=== PATIENT | male | born 1990 | race Hispanic/Latino ===

== ENCOUNTER 2018-07-28 10:30 | Emergency (ER) | payer OTHER, SELFPAY ==
[2018-07-28 10:30] VITALS: BP 135/65; PULSE 51; RESP 12; TEMP 36.2; O2SAT 99
--- NOTE | 2018-07-28 10:56 | ED_ITS ---
HPI - General Adult General Chief complaint: Blood/Body fluid exposure Stated complaint: EXPOSURE TO BODILY FLUIDS Time Seen by Provider: 07/28/18 10:55 Source: patient Mode of arrival: ambulatory Limitations: no limitations History of Present Illness HPI narrative: Patient is an otherwise healthy 28-year-old male here for evaluation. He is a [employer] man. He was called out to a crew ship in the area for resuscitation of an elderly gentleman who had CPR in progress. With the patient arrived there he did performed chest compressions. He did perform [id number] resuscitation with a barrier device and also performed respiratory support with a bag-valve mask. He stated that during this resuscitation which ventrally was unsuccessful there was respiratory secretions. He did not directly have exposure to the secretions. While there putting the individual in the body back his IV did come out and there was blood in the area. He was not stuck with any needles. Review of Systems Review of Systems All systems reviewed & are unremarkable except as noted in HPI and below PFSH Medical History Healthy adult (Acute) Surgical History No pertinent past surgical history (Acute) Exam Initial Vital Signs Initial Vital Signs: Vital Signs Temperature 97.1 F L 07/28/18 10:30 Pulse Rate 51 L 07/28/18 10:30 Respiratory Rate 12 07/28/18 10:30 Blood Pressure 135/65 07/28/18 10:30 Pulse Oximetry 99 07/28/18 10:30 Const General: cooperative, healthy appearing, comfortable, well developed, well groomed and No acute distress Orientation: alert, awake and oriented x3 HENMT Head: normal to inspection and normocephalic Resp Effort & Inspection: normal respiratory effort Skin Lesions: no lesions Rashes: no rashes Neuro General: alert, awake and oriented x3 Extrem General: normal to inspection Psych Appearance: grossly normal and well kempt Medical Decision Making MDM Narrative Medical decision making narrative: I feel like given the patient's clinical scenario that the chances of a blood borne pathogen infection is extremely unlikely in this situation. I did recommend to the patient that we do not draw any blood today. The patient did have a medical apparatus model maker with him here who stated that it was [employer] ?policy ?that he had blood drawn. I asked this account services representative if he had a copy the policy which he did not have. I asked this individual if he knew what blood that the [employer] requires in this situation and he could not answer this question. I informed him that if he did not have a list of what they would like drawn then it would be up to me and I felt like there was no need for blood drawn the situation. I did inform that if he could produce a list of blood then I would be happy to draw this for them however if he could not produce the list then I would not randomly draw blood on the individual. After this discussion the patient and the medical apparatus model maker opted to be discharged [place] Patient was given return precautions. Discharge Plan Departure Patient Disposition: Home Clinical Impression: Normal exam Discharge Date/Time: 07/28/18 12:22 Interventions: ED Discharge Assessment Last Done: 07/28/18 12:19 Instructions: DI for Accidental Exposure to Body Fluids Activity Restrictions/Additional Instructions: Your exposure today is low risk for developing blood borne pathogen infections. You have no restrictions on her activity
--- NOTE | 2018-07-28 11:48 | PC.NURSE ---
Blood/Body Fluid Exposure Assessment: Pt in [employer]. 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 After patient was , the IV on the patient was pulled accidentally and blood got on his pants/leg. Skin was intact. Was sent by [email or web address] for blood exposure panel.
== END 2018-07-28 12:22 | disposition home or self-care (01) ==
PROVIDERS: Emergency Provider Emergency Medicine
DX: Z71.1 Person with feared health complaint in whom no diagnosis is made (principal)
CPT/HCPCS: 99282